=== PATIENT | female | born 2000 ===

== ENCOUNTER 2018-10-20 12:59 | Emergency (ER) | payer OTHER ==
[~2018-10-20] VITALS: Ht 162.6 cm; Wt 48.5 kg
[2018-10-20 13:13] VITALS: Ht 162.6 cm; Wt 48.5 kg
[2018-10-20 13:31] VITALS: BP 131/92
== END 2018-10-20 13:31 | disposition home or self-care (01) ==
LOC: ED 12:59
DX: J45.909 Unspecified asthma, uncomplicated (principal); Z88.0 Allergy status to penicillin; Z88.1 Allergy status to other antibiotic agents; Z76.0 Encounter for issue of repeat prescription

== ENCOUNTER 2018-10-31 16:38 | Emergency (ER) | payer OTHER ==
[~2018-10-31] VITALS: Ht 160 cm; Wt 48.5 kg
[2018-10-31 16:47] VITALS: Ht 160 cm; Wt 48.5 kg
[2018-10-31 17:43] VITALS: BP 121/64
== END 2018-10-31 17:43 | disposition home or self-care (01) ==
LOC: ED 16:38
DX: N39.0 Urinary tract infection, site not specified (principal); Z88.0 Allergy status to penicillin; Z88.1 Allergy status to other antibiotic agents; J45.909 Unspecified asthma, uncomplicated; Z88.8 Allergy status to other drugs, medicaments and biological substances